=== PATIENT | male | born 1970 | race Caucasian/White ===

== ENCOUNTER 2020-12-24 10:53 | Emergency (ER) | payer SELFPAY ==
[~2020-12-24] VITALS: Ht 177.8 cm; Wt 78.0 kg
[2020-12-24] MEDS ORDERED: NALOXONE HCL 0.4 MG/ML 1ML VIAL IV ONE (11:15)
[2020-12-24] MEDS ORDERED: ATROPINE SULFATE 1MG/ML VIAL IV ONE (11:15)
[2020-12-24 11:35] LABS: HEMATOCRIT. 44.9 % (42.0-52.0); HEMOGLOBIN. 15.2 g/dL (14.0-18.0); MEAN CORPUSCULAR HEMOGLOBIN 29.5 pg (28.0-32.0); MEAN CORPUSCULAR VOLUME 87.4 fL (80.0-94.0); MEAN PLATELET VOLUME 7.3 fl (7.4-10.4); PLATELET 245 x1000/uL (130-400); RED BLOOD CELL COUNT 5.14 mill/uL (4.7-6.1); RED CELL DISTRIBUTION WIDTH 13.3 % (11.6-14.6)
[2020-12-24 11:42] LABS: CHLORIDE 101 mEq/L (98-107)
[2020-12-24] MEDS ORDERED: LEVETIRACETAM 500MG PREMIX 100 ML IV ONE (11:45)
[2020-12-24 11:51] LABS: ETHANOL BLOOD < 10 mg/dL
[2020-12-24] MEDS ORDERED: PROPOFOL 10MG/ML 100ML 100 ML IV STA (11:51)
[2020-12-24 11:56] LABS: CLARITY URINE CLEAR (CLEAR); COLOR URINE YELLOW (YELLOW); KETONES URINE 4+ (NEGATIVE); LEUKOCYTE ESTERASE URINE NEGATIVE (NEGATIVE); NITRITE URINE NEGATIVE (NEGATIVE); OCCULT BLOOD URINE 1+ (NEGATIVE); PH URINE 5.5 (4.5-8.0); PROTEIN URINE 1+ (NEGATIVE); SPECIFIC GRAVITY URINE 1.031 (1.005-1.030)
[2020-12-24] MEDS ORDERED: LORAZEPAM 2MG/ML CPJ IV ONE (12:00)
[2020-12-24] MEDS ORDERED: MANNITOL 12.5G (25%) VIAL 50ML IV ONE (12:00)
[2020-12-24] MEDS ORDERED: DEXAMETHASONE 10 MG/ML VIAL IV ONE (12:00)
[2020-12-24 12:46] LABS: *COCAINE SCREEN URINE NEGATIVE (NEGATIVE); METHADONE URINE SCREEN NEGATIVE (NEGATIVE); OPIATES URINE SCREEN NEGATIVE (NEGATIVE); PHENCYCLIDINE URINE SCREEN NEGATIVE (NEGATIVE)
[2020-12-24 12:47] LABS: *AMPHETAMINES SCREEN URINE PRESUMTIVE POSITIVE (NEGATIVE); *BARBITURATES SCREEN URINE NEGATIVE (NEGATIVE); *BENZODIAZEPINES SCREEN URINE NEGATIVE (NEGATIVE); CANNABINOID URINE SCREEN NEGATIVE (NEGATIVE)
[2020-12-24 13:15] VITALS: BP 123/76
[2020-12-24 13:42] LABS: PLATELET ESTIMATE NORMAL
== END 2020-12-24 13:15 | disposition short-term general hospital (02) ==
LOC: ER 11:04
DX: S02.91XA Unspecified fracture of skull, initial encounter for closed fracture (principal); S06.9X0A Unspecified intracranial injury without loss of consciousness, initial encounter; S06.4X9A Epidural hemorrhage with loss of consciousness of unspecified duration, initial encounter; Z20.822 Contact with and (suspected) exposure to COVID-19; X58.XXXA Exposure to other specified factors, initial encounter; Y93.89 Activity, other specified; Y92.89 Other specified places as the place of occurrence of the external cause; Y99.8 Other external cause status
CPT/HCPCS: 31500; 36415; 70450; 71045; 72125; 80053; 80305; 80307; 80320; 80329; 81003; 82140; 82962; 83690; 83735; 83880; 84484; 85025; 87426; 93005; 96365; 96375; 99291; J0461; J1100; J1953; J2060; J2150; J2310; J2704; Z7610; 94002; 96367; A4315; G0480